=== PATIENT | male | born 1975 | race American Indian/Alaskan Native ===

== ENCOUNTER 2016-10-15 10:05 | Day surgery (SDC) | payer BC ==
[~2016-10-15 10:05] MED LIST: LACTATED RINGERS 1,000 ML IV SCH; PEPCID PO NR; VANCOMYCIN/NS 1 GM/250 ML 1 GM/250 ML BAG IV NR; VERSED IV NR
[2016-10-15] MEDS ORDERED: NACL BACTERIOSTATIC INFILTRATI ONE (10:40)
[2016-10-15] MEDS ORDERED: NACL 0.9% 1000 ML 1,000 ML IV SCH (11:00)
[2016-10-15] MEDS ORDERED: ZOFRAN IV PRN (11:09)
--- NOTE | 2016-10-15 11:10 | Anesthesia Day of Surgery ---
Anesthesia Day of Surgery - Day of Surgery Patient Examined: Yes Patient H&P Reviewed: Yes Patient is NPO: Yes
--- NOTE | 2016-10-15 11:14 | Anesthesia Consultation ---
Anesthesia Consult and Med Hx Date of service: 10/15/16 - Airway Anesthetic Teeth Evaluation: Good, Caps (GOLD, TOP FRONT) ROM Head & Neck: Adequate Mental/Hyoid Distance: Adequate Mallampati Class: Class II Intubation Access Assessment: Probably Good - Pulmonary Exam CTA: Yes - Cardiac Exam Cardiac Exam: RRR - Pre-Operative Health Status ASA Pre-Surgery Classification: ASA2 Proposed Anesthetic Plan: General - Pulmonary Hx Smoking: Yes (MARIJUANA) - Other Systems Hx Alcohol Use: Yes (SOCIAL 1 TO 2 PER WEEK) Hx Substance Use: Yes (SMOKED MARIJUANA 03/2016)
[2016-10-15] MEDS ORDERED: XYLOCAINE MPF 2% ONE (11:20)
[2016-10-15] MEDS ORDERED: DIPRIVAN 10 MG/ML IV ONE (11:21)
[2016-10-15] MEDS ORDERED: SUBLIMAZE ONE (11:21)
[2016-10-15] MEDS ORDERED: NACL 0.9% IR ONE (11:58)
[2016-10-15] MEDS ORDERED: QUELICIN ONE (11:58)
[2016-10-15] MEDS ORDERED: MARCAINE-EPI 0.5%-1:200,000 INFILTRATI ONE (11:58)
[2016-10-15] MEDS ORDERED: MARCAINE-EPI/PF 0.5%-1:200,000 INFILTRATI ONE (12:07)
[2016-10-15] MEDS ORDERED: ZOFRAN ONE (12:38)
[2016-10-15] MEDS ORDERED: DECADRON ONE (12:38)
[2016-10-15] MEDS ORDERED: ZEMURON IV ONE (12:57)
--- NOTE | 2016-10-15 13:03 | Discharge Summary ---
Short Stay Discharge Plan Activity: other (june d/c when stable. reg diet. keep dressings dry x 5 days. instruct on drain care. record I&O's q 8h) Weight Bearing Status: Partial Weight Bearing Diet: regular Wound: keep clean and dry Additional Instructions: aleve 1 po q 6-8 hrs prn for breakthrough pain Follow up with: LACHELLE BAEZA MD [Staff Physician] - 10/19/16
[2016-10-15] MEDS: DILAUDID IV PRN ×2 (13:25→13:37)
[2016-10-15 15:23] VITALS: BP 122/72
--- NOTE | 2016-10-15 17:31 | Operative Report ---
PREOPERATIVE DIAGNOSIS: Large left upper back mass. POSTOPERATIVE DIAGNOSIS: Large left upper back mass, pending final pathology. Mass looks lipomatous in nature, but was deep and extended down to the muscle fascia. PROCEDURE: Excision of aforementioned mass. SURGEON: Jonas Jordan MD ANESTHESIA: General. ESTIMATED BLOOD LOSS: Minimal. DRAINS: One 19 Derik drain left. COMPLICATIONS: None. PROCEDURE IN DETAIL: The patient was taken up to the operating room and placed in prone position, prepped and draped in usual sterile fashion. Large mass was outlined with a marking pencil. A 15 blade was used to incise skin and subcutaneous tissue. Needle tip electrocautery was used to dissect down to the mass. The mass appeared lipomatous in nature, but did not easily shell out. The mass extended down to the muscle fascia and there were no clear cut planes in some areas. Slow dissection was carried out with electrocautery as well as sharp and blunt dissection. The entire mass was then removed en bloc and sent fresh to pathology. The area was irrigated copiously and dry. Checked for hemostasis and noted to be dry. The 19 Derik was left draining the subcutaneous space. The drain was secured to the skin with a 2-0 silk suture. The subQ was closed with interrupted 3-0 Vicryl suture and the skin was closed with interrupted 4-0 Prolene. Grossly, the mass measured approximately 6 x 8 cm. The patient tolerated the procedure well and left the OR in stable condition. JOB# [id number] UVALDO/KIMBERLEY
== END 2016-10-15 10:06 | disposition home or self-care (01) ==
LOC: OR 10:05
PROVIDERS: ATTEND Surgery
DX: R22.2 Localized swelling, mass and lump, trunk (principal); K21.9 Gastro-esophageal reflux disease without esophagitis; F12.90 Cannabis use, unspecified, uncomplicated; Z72.89 Other problems related to lifestyle
CPT/HCPCS: 21933; 88304; J0330; J1100; J1170; J2250; J2405; J2704; J3010; J3370; 88307